=== PATIENT | male | born 1985 | race Caucasian/White ===

== ENCOUNTER → 2017-06-26 | Outpatient (REF) | payer OTHER ==
[~2017-06-26] MED LIST: BUPR100T3 PO; CEPH500T PO; EFFE150C PO; EFFE75CA75 PO; IMIT50TA PO; MIRT1TAB PO; QUET20XRTB PO; SERO1TAB PO; SERO1TAB3 PO; SERO200T PO; TOPA50TA8 PO; TRAZ1TAB14 PO; TYLE325T5 PO; VENL225T PO; WELL100T PO
[2017-06-26 10:51] LABS: % NORMAL FORMS 13 % (>=4); IMMOTILITY 34 %; NON PROGRESSIVE MOTILITY (c) 14 %; PROGRESSIVE MOTILITY (a) 52 % (>=32); SPERM# 28.4 M/Ejac (>=39); TOTAL MOTILITY 66 % (>=40)
[2017-06-26 10:52] LABS: TOTAL FUNCTIONAL 4.2 M/Ejac.; TOTAL PROGRESSIVE SPERM 14.7 M/Ejac.
== END ==
LOC: M LAB REF 10:27
PROVIDERS: ATTEND Nurse Practitioner Women's Health
DX: N46.8 Other male infertility (principal)